=== PATIENT | female | born 1990 | race Caucasian/White ===

== ENCOUNTER 2016-07-15 15:52 | Emergency (ER) | payer SELFPAY ==
[2016-07-15 15:58] VITALS: BMI 23.8
[2016-07-15 15:59] VITALS: BP 123/83; PULSE 91; RESP 18; TEMP 98.1; O2SAT 99
--- NOTE | 2016-07-15 16:25 | C.PDOC ---
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 Patient states she has also had mild diarrhea since yesterday and has no other complaints at this time. Time Seen by Provider: 07/15/16 16:16 Chief Complaint (Nursing): Abdominal Pain History Per: Patient History/Exam Limitations: no limitations Onset/Duration Of Symptoms: Days Current Symptoms Are (Timing): Still Present Severity: Mild Past Medical History Reviewed: Historical Data, Nursing Documentation, Vital Signs Vital Signs: Last Vital Signs Temp 98.1 F 07/15/16 15:59 Pulse 91 H 07/15/16 15:59 Resp 18 07/15/16 15:59 BP 123/83 07/15/16 15:59 Pulse Ox 99 07/15/16 16:31 - Medical History PMH: No Chronic Diseases - [facility] Procedures BARTHOLIN GLAND MARSUP (02/10/14) INCISE BARTHOLIN'S GLAND (09/28/13) Family History: States: Unknown Family Hx - Social History Hx Tobacco Use: No Hx Alcohol Use: Yes Hx Substance Use: No - Immunization History Hx Tetanus Toxoid Vaccination: No Hx Influenza Vaccination: No Hx Pneumococcal Vaccination: No Review Of Systems Except As Marked, All Systems Reviewed And Found Negative. Constitutional: Negative for: Fever, Chills Respiratory: Negative for: Cough, Shortness of Breath Gastrointestinal: Positive for: Diarrhea. Negative for: Vomiting, Abdominal Pain Musculoskeletal: Negative for: Back Pain Skin: Negative for: Rash Neurological: Negative for: Weakness, Numbness Physical Exam - Physical Exam Appears: Non-toxic, No Acute Distress Skin: Normal Color, Warm, Dry Head: Atraumatic, Normacephalic Eye(s): bilateral: Normal Inspection Oral Mucosa: Moist Chest: Symmetrical, No Deformity Cardiovascular: Rhythm Regular, No Murmur Respiratory: Normal Breath Sounds, No Accessory Muscle Use, No Rales, No Rhonchi , No Wheezing Gastrointestinal/Abdominal: Soft, No Tenderness, No Distention, No Guarding, No Rebound Extremity: Normal ROM Neurological/Psych: Oriented x3, Normal Speech, Normal Cognition ED Course And Treatment O2 Sat by Pulse Oximetry: 99 (Room air) Pulse Ox Interpretation: Normal Progress Note: Patient treated with Imodium. Medical Decision Making Medical Decision Making: viral syndrome, now with mild viral gastroenteritis, normal abd exam BRAT diet and Imodium educated. 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 incidental loose stools since yesterday Disposition Doctor Will See Patient In The: Office Counseled Patient/Family Regarding: Studies Performed, Diagnosis - Disposition Referrals: Brando Thomas MD [Staff Provider] - Disposition: HOME/ ROUTINE Disposition Time: 16:25 Condition: GOOD Additional Instructions: BRAT diet: bananas, white rice, applesauce, toast/bread Gatorade and plenty of fluids Imodium 2 mg caps to help slow the frequency of diarrhea: every 4-6 hours: maximum 3/day Follow-up with your PMD as needed. Instructions: Gastroenteritis (ED), Viral Syndrome (ED) Forms: Work Excuse - Clinical Impression Clinical Impression: Viral syndrome, Diarrhea - Scribe Statement The provider has reviewed the documentation as recorded by the Scribe Shira Shelton. Provider Attestation: All medical record entries made by the Scribe were at my direction and personally dictated by me. I have reviewed the chart and agree that the record accurately reflects my personal performance of the history, physical exam, medical decision making, and the department course for this patient. I have also personally directed, reviewed, and agree with the discharge instructions and disposition.
== END 2016-07-15 16:42 | disposition home or self-care (01) ==
LOC: C.ER 15:52
DX: B34.9 Viral infection, unspecified (principal)

== ENCOUNTER 2017-12-19 09:44 | Emergency (ER) | payer OTHER, MEDICAID ==
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
[2017-12-19 11:00] VITALS: BMI 21.9
[2017-12-19 11:09] VITALS: BP 106/72; PULSE 67; RESP 18; TEMP 98.5; O2SAT 99
== END 2017-12-19 11:50 | disposition home or self-care (01) ==
LOC: C.ER 09:44
DX: S16.1XXA Strain of muscle, fascia and tendon at neck level, initial encounter (principal); V89.2XXA Person injured in unspecified motor-vehicle accident, traffic, initial encounter; R51 Headache

== ENCOUNTER 2018-05-10 10:07 | Outpatient (CLI) | payer OTHER | END 2018-05-10 10:08 | disposition home or self-care (01) | LOC: C.USIC 10:07 | DX: N64.4 Mastodynia (principal) ==